=== PATIENT | male | born 1945 | race Caucasian/White ===

== ENCOUNTER 2018-03-28 07:47 | Day surgery (SDC) | payer OTHER ==
[~2018-03-28] VITALS: Ht 180.3 cm; Wt 106.0 kg
[~2018-03-28 07:47] MED LIST: ACET500 PO; ARTIFICIAL TEAR15 ML BOTHEYES; ATOR20 PO; BETA.05TCA; CVS DAILY MULT1 EAC1 PO; DILTIAZEM 24HR240 M1 PO; DULO30 PO; FISH OIL 1,0001 EACH PO; Ferrous Sulfat325 M2 PO; Geri-Hydrolac140 GM; HYDCHL12.5 PO; Xalatan2.5 ML; ZYRTEC10 M1 PO
[2018-03-28] MEDS ORDERED: WARF5 PO (08:33)
[2018-03-28] MEDS ORDERED: LOSA50 PO (08:33)
[2018-03-28] MEDS ORDERED: METO50ER PO (08:35)
== END 2018-03-28 22:39 | disposition home or self-care (01) ==
LOC: MHTC 07:47
PROC: 5A2204Z Restoration of Cardiac Rhythm, Single (ICD-10-PCS; principal; 2018-03-28)
DX: I48.0 Paroxysmal atrial fibrillation (principal); I48.92 Unspecified atrial flutter; E78.5 Hyperlipidemia, unspecified; I10 Essential (primary) hypertension; G47.33 Obstructive sleep apnea (adult) (pediatric); Z79.01 Long term (current) use of anticoagulants; Z87.891 Personal history of nicotine dependence
CPT/HCPCS: 92960; 93005; 93010; J7120

== ENCOUNTER 2018-10-23 00:33 | Emergency (ER) | payer SELFPAY ==
[~2018-10-23] VITALS: Ht 175.3 cm; Wt 104.8 kg
[~2018-10-23 00:33] MED LIST changes: +LOSA50 PO; +METO50ER PO; +WARF5 PO
[2018-10-23] MEDS ORDERED: ASCO500 PO (02:41)
[2018-10-23] MEDS ORDERED: Istalol2.5 ML BOTHEYES (02:44)
[2018-10-23] MEDS ORDERED: DOCU100 PO (02:47)
[2018-10-23] MEDS ORDERED: ELIQUIS5 MG PO (02:47)
[2018-10-23] MEDS ORDERED: ERGO400 PO (02:49)
[2018-10-23] MEDS ORDERED: PANT40 PO (02:50)
[2018-10-23] MEDS ORDERED: Flonase 0.05% N16 GM (02:51)
[2018-10-23 04:40] LABS: BASOPHILS ABSOLUTE AUTO 0.03 K/mm3 (0.00-0.23); BASOPHILS PERCENT AUTO 1 % (0-2); EOSINOPHILS ABSOLUTE AUTO 0.21 K/mm3 (0.00-0.68); EOSINOPHILS PERCENT AUTO 4 % (0-6); Hematocrit 34.7 % (37.0-53.0); Hemoglobin 11.3 g/dL (13.5-17.5); IMMATURE GRAN ABSOLUTE AUTO 0.03 K/mm3 (0.00-0.10); IMMATURE GRAN PERCENT AUTO 1 % (0-1); LYMPHOCYTES ABSOLUTE AUTO 1.71 K/mm3 (0.84-5.20); LYMPHOCYTES PERCENT AUTO 29 % (21-46); MONOCYTES ABSOLUTE AUTO 0.63 K/mm3 (0.16-1.47); MONOCYTES PERCENT AUTO 11 % (4-13); Mean Corpuscular HGB 32.3 pg (26.0-34.0); Mean Corpuscular HGB Conc 32.6 g/dL (31.5-36.5); Mean Corpuscular Volume 99 fL (80-100); Mean Platelet Volume 10.2 fL (9.1-12.4); NEUTROPHILS ABSOLUTE AUTO 3.21 K/mm3 (1.96-9.15); NEUTROPHILS PERCENT AUTO 55 % (41-73); Platelet Count 228 K/mm3 (150-400); RDW Coefficient Variation 13.2 % (11.7-14.2); RDW Standard Deviation 47.5 fL (35.1-46.3); White Blood Cell Count 5.82 K/mm3 (4.00-11.30)
[2018-10-23 05:01] LABS: Alanine Aminotransfer (ALT/SGP 37 U/L (12-78); Albumin, Blood 3.3 g/dL (3.4-5.0); Albumin/Globulin Ratio 1.1 (0.8-1.8); Alk Phos 73 U/L (50-136); Anion Gap 10 mmol/L (6-16); Aspartate Aminotrans (AST/SGOT 24 U/L (12-37); Bilirubin, Total 0.2 mg/dL (0.1-1.0); Blood Urea Nitrogen 24 mg/dL (8-24); CO2, Blood 23 mmol/L (21-32); Calcium, Blood 8.4 mg/dL (8.5-10.1); Chloride, Blood 110 mmol/L (98-108); Creatinine, Blood 1.33 mg/dL (0.60-1.20); Glomerular Filtration Rate 56 (60-); Glucose, Blood 103 mg/dL (70-99); Potassium, Blood 3.8 mmol/L (3.5-5.5); Sodium, Blood 143 mmol/L (136-145); Total Protein, Blood 6.3 g/dL (6.4-8.2); Troponin I <0.015 ng/mL (0.000-0.040)
== END 2018-10-23 05:38 | disposition home or self-care (01) ==
LOC: ER 00:33
PROVIDERS: Emergency Medicine
DX: I48.91 Unspecified atrial fibrillation (principal); Z88.0 Allergy status to penicillin; Z88.5 Allergy status to narcotic agent; Z88.1 Allergy status to other antibiotic agents; Z91.030 Bee allergy status; Z79.899 Other long term (current) drug therapy; Z87.891 Personal history of nicotine dependence
CPT/HCPCS: 80053; 84484; 85025; 93005; 93010; 99285-25

== ENCOUNTER 2019-09-12 09:08 | Day surgery (SDC) | payer OTHER ==
[~2019-09-12 09:08] MED LIST changes: +ASCO500 PO; +DOCU100 PO; +ELIQUIS5 MG PO; +ERGO400 PO; +Flonase 0.05% N16 GM; +Istalol2.5 ML BOTHEYES; +PANT40 PO
--- NOTE | 2019-09-12 10:58 | NUR ---
LATE ENTRY 0925 18 GAUGE IV INSTERTED IN [facility] BY AYAAN. PT TOLERATED WELL.
--- NOTE | 2019-09-12 11:13 | NUR ---
PT MEETS CRITERIA FOR D/C. IV D/C'D WNL. Discharge instructions reviewed with patient. Patient verbalizes understanding. Copy given to patient to take home. Discharged via wheelchair to private car for ride home.
== END 2019-09-12 23:14 | disposition home or self-care (01) ==
LOC: CT 09:08
DX: I25.10 Atherosclerotic heart disease of native coronary artery without angina pectoris (principal); I12.9 Hypertensive chronic kidney disease with stage 1 through stage 4 chronic kidney disease, or unspecified chronic kidney disease; E78.5 Hyperlipidemia, unspecified; G47.33 Obstructive sleep apnea (adult) (pediatric); N18.2 Chronic kidney disease, stage 2 (mild); Z79.899 Other long term (current) drug therapy; Z79.01 Long term (current) use of anticoagulants; Z87.891 Personal history of nicotine dependence; Z88.5 Allergy status to narcotic agent; Z88.0 Allergy status to penicillin; Z88.1 Allergy status to other antibiotic agents; Z91.030 Bee allergy status
CPT/HCPCS: 75574; Q9967

== ENCOUNTER 2019-10-03 07:45 | Day surgery (SDC) | payer OTHER ==
[~2019-10-03] VITALS: Ht 175.3 cm; Wt 109.0 kg
--- NOTE | 2019-10-03 13:48 | NUR ---
R WRIST TR BAND REMOVED. PUNCTURE AREA CLEANED WITH NS AND CLOTH DRSG APPLIED. -BLEEDING OR SWELLING. R WRIST SPLINT REAPPLIED. IV REMOVED. PT TAKEN OUT OF THE [facility] VIA W/C.
== END 2019-10-03 14:18 | disposition home or self-care (01) ==
LOC: MHTC 07:45
PROC: B201YZZ Plain Radiography of Multiple Coronary Arteries using Other Contrast (ICD-10-PCS; principal; 2019-10-03)
PROC: 4A023N7 Measurement of Cardiac Sampling and Pressure, Left Heart, Percutaneous Approach (ICD-10-PCS; principal; 2019-10-03)
DX: I25.10 Atherosclerotic heart disease of native coronary artery without angina pectoris (principal); E78.5 Hyperlipidemia, unspecified; G47.33 Obstructive sleep apnea (adult) (pediatric); I12.9 Hypertensive chronic kidney disease with stage 1 through stage 4 chronic kidney disease, or unspecified chronic kidney disease; I48.91 Unspecified atrial fibrillation; N18.2 Chronic kidney disease, stage 2 (mild); Z88.0 Allergy status to penicillin; Z88.1 Allergy status to other antibiotic agents; Z91.030 Bee allergy status; Z79.01 Long term (current) use of anticoagulants; Z79.899 Other long term (current) drug therapy; Z87.891 Personal history of nicotine dependence; Z88.5 Allergy status to narcotic agent
CPT/HCPCS: 85347; 92978; 93458; 93571; 99152; 99153; C1725; C1769; C1887; C1894; J1644; J2250; J3010; J7030; Q9967

== ENCOUNTER 2021-03-30 13:07 | Day surgery (SDC) | payer OTHER ==
[~2021-03-30] VITALS: Ht 175.3 cm; Wt 94.4 kg
[~2021-03-30 13:07] MED LIST changes: +ALBU90OI INH; +ANTIFUNGAL30 GM TOP; +ARTIFICIAL TEA1 EACH BOTHEYES; +ARTIFICIAL TEAR15 M2; -ARTIFICIAL TEAR15 ML BOTHEYES; +ASPIR PO; +Acerola C500 MG PO; +Amiodarone HCl200 MG PO; +CLOTRIMAZOLE AF1524 TOP; +COMBIVENT RESPIM4 G1 INH; -CVS DAILY MULT1 EAC1 PO; +Colace100 MG PO; +DICLOFENAC SOD100 G1 TOP; -DILTIAZEM 24HR240 M1 PO; +DILTIAZEM 24HR360 MG PO; +ELIQUIS5 M2 PO; -ERGO400 PO; +FERROUS SULFAT325 M3 PO; +FERSU300 PO; +FISH OIL 1,0001 EAC8 PO; -FISH OIL 1,0001 EACH PO; +FISH OIL 1,2001 EAC1 PO; +GEMF600 PO; +HYDCHL25 PO; +Hair, Skin & N1 EACH PO; -Istalol2.5 ML BOTHEYES; +LATA.005SO BOTHEYES; +LEVE500 PO; +LIDO700A20 TOP; +LUBRICATING TEA15 ML BOTHEYES; +METAMUCIL POWD575 GM PO; +METO25 PO; +MULTIPLE VITAM1 EACH PO; +NITR.4SL SL; +PSYLLIUM SEED PO; +REFRESH CELLUV1 EACH BOTHEYES; +STIOLTO RESPIMAT4 G1 INH; +TIAZAC PO; +TIMO.25OPS BOTHEYES; +TOPROL XL50 M1 PO; +VITAMIN D325 MC3 PO; +Vitamin D2000 UNIT PO; +XALATAN2.5 ML BOTHEYES; -Xalatan2.5 ML; +ZYRTEC10 M2 PO
--- NOTE | 2021-03-30 13:42 | NUR ---
03/30/21 1342 Zaida Machuca 1 TRY RIGHT LEFT HAND NO FLASH
== END 2021-03-30 15:53 | disposition home or self-care (01) ==
LOC: ORSCSDS 13:07
PROVIDERS: Surgery
PROC: 0DB68ZX Excision of Stomach, Via Natural or Artificial Opening Endoscopic, Diagnostic (ICD-10-PCS; principal; 2021-03-30 14:30)
PROC: 0DBH8ZX Excision of Cecum, Via Natural or Artificial Opening Endoscopic, Diagnostic (ICD-10-PCS; principal; 2021-03-30 14:30)
PROC: 0DB98ZX Excision of Duodenum, Via Natural or Artificial Opening Endoscopic, Diagnostic (ICD-10-PCS; principal; 2021-03-30 14:30)
PROC: 0DBL8ZX Excision of Transverse Colon, Via Natural or Artificial Opening Endoscopic, Diagnostic (ICD-10-PCS; principal; 2021-03-30 14:30)
PROC: 0DBP8ZX Excision of Rectum, Via Natural or Artificial Opening Endoscopic, Diagnostic (ICD-10-PCS; principal; 2021-03-30 14:30)
PROC: 0D568ZZ Destruction of Stomach, Via Natural or Artificial Opening Endoscopic (ICD-10-PCS; principal; 2021-03-30 14:30)
DX: D50.0 Iron deficiency anemia secondary to blood loss (chronic) (principal); K31.819 Angiodysplasia of stomach and duodenum without bleeding; D12.0 Benign neoplasm of cecum; D12.3 Benign neoplasm of transverse colon; K62.1 Rectal polyp; Z86.010 Personal history of colon polyps; I48.91 Unspecified atrial fibrillation; Z86.73 Personal history of transient ischemic attack (TIA), and cerebral infarction without residual deficits; I12.9 Hypertensive chronic kidney disease with stage 1 through stage 4 chronic kidney disease, or unspecified chronic kidney disease; N18.2 Chronic kidney disease, stage 2 (mild); G47.33 Obstructive sleep apnea (adult) (pediatric); R73.03 Prediabetes; E78.5 Hyperlipidemia, unspecified; Z79.01 Long term (current) use of anticoagulants; Z79.899 Other long term (current) drug therapy; Z87.891 Personal history of nicotine dependence
CPT/HCPCS: 88305; 88342; J2370; J2405; J2704; J7120

== ENCOUNTER 2021-04-20 19:15 | Emergency (ER) | payer OTHER ==
[~2021-04-20] VITALS: Ht 175.3 cm; Wt 97.1 kg
[2021-04-20 19:58] LABS: BASOPHILS ABSOLUTE AUTO 0.03 K/mm3 (0.00-0.23); BASOPHILS PERCENT AUTO 1 % (0-2); EOSINOPHILS ABSOLUTE AUTO 0.25 K/mm3 (0.00-0.68); EOSINOPHILS PERCENT AUTO 4 % (0-6); Hematocrit 27.9 % (37.0-53.0); Hemoglobin 8.7 g/dL (13.5-17.5); IMMATURE GRAN ABSOLUTE AUTO 0.02 K/mm3 (0.00-0.10); IMMATURE GRAN PERCENT AUTO 0 % (0-1); LYMPHOCYTES PERCENT AUTO 15 % (21-46); MONOCYTES PERCENT AUTO 10 % (4-13); Mean Corpuscular HGB 28.7 pg (26.0-34.0); Mean Corpuscular HGB Conc 31.2 g/dL (31.5-36.5); Mean Corpuscular Volume 92 fL (80-100); Mean Platelet Volume 10.2 fL (9.1-12.4); NEUTROPHILS ABSOLUTE AUTO 4.34 K/mm3 (1.96-9.15); NEUTROPHILS PERCENT AUTO 71 % (41-73); Platelet Count 371 K/mm3 (150-400); RDW Coefficient Variation 14.2 % (11.7-14.2); RDW Standard Deviation 48.2 fL (35.1-46.3); Red Blood Cell Count 3.03 M/mm3 (4.30-5.90); White Blood Cell Count 6.14 K/mm3 (4.00-11.30)
[2021-04-20 21:23] LABS: Alanine Aminotransfer (ALT/SGP 36 U/L (12-78); Albumin, Blood 3.7 g/dL (3.4-5.0); Albumin/Globulin Ratio 1.1 (0.8-1.8); Alk Phos 71 U/L (50-136); Anion Gap 7 mmol/L (6-16); Aspartate Aminotrans (AST/SGOT 19 U/L (12-37); Bilirubin, Total 0.2 mg/dL (0.1-1.0); Blood Urea Nitrogen 34 mg/dL (8-24); Bun/Creatinine Ratio 16.2 (12.0-20.0); CO2, Blood 25 mmol/L (21-32); Calcium, Blood 8.5 mg/dL (8.5-10.1); Chloride, Blood 109 mmol/L (98-108); Globulin, Blood 3.4 g/dL (2.2-4.0); Glomerular Filtration Rate 31 (60-); Glucose, Blood 103 mg/dL (70-99); Sodium, Blood 141 mmol/L (136-145); Total Protein, Blood 7.1 g/dL (6.4-8.2); Troponin I <0.015 ng/mL (0.000-0.040)
== END 2021-04-20 22:40 | disposition home or self-care (01) ==
LOC: ER 19:15
PROVIDERS: Emergency Medicine Emergency Medical Services
DX: R42 Dizziness and giddiness (principal); I12.9 Hypertensive chronic kidney disease with stage 1 through stage 4 chronic kidney disease, or unspecified chronic kidney disease; N18.30 Chronic kidney disease, stage 3 unspecified; D63.1 Anemia in chronic kidney disease; I48.91 Unspecified atrial fibrillation; I25.10 Atherosclerotic heart disease of native coronary artery without angina pectoris; E78.5 Hyperlipidemia, unspecified; G47.33 Obstructive sleep apnea (adult) (pediatric); Z91.038 Other insect allergy status; Z88.0 Allergy status to penicillin; Z88.1 Allergy status to other antibiotic agents; Z88.5 Allergy status to narcotic agent; Z79.899 Other long term (current) drug therapy; Z79.01 Long term (current) use of anticoagulants
CPT/HCPCS: 36415; 70450; 71045; 80053; 84484; 85025; 93005; 93010; 99285-25

== ENCOUNTER 2021-05-10 10:38 | Day surgery (SDC) | payer OTHER ==
[~2021-05-10] VITALS: Ht 175.3 cm; Wt 98.0 kg
== END 2021-05-10 12:40 | disposition home or self-care (01) ==
LOC: ORSCSDS 10:38
PROVIDERS: Surgery
PROC: 0D568ZZ Destruction of Stomach, Via Natural or Artificial Opening Endoscopic (ICD-10-PCS; principal; 2021-05-10 12:00)
DX: D50.0 Iron deficiency anemia secondary to blood loss (chronic) (principal); K31.819 Angiodysplasia of stomach and duodenum without bleeding; I10 Essential (primary) hypertension; G47.33 Obstructive sleep apnea (adult) (pediatric); E78.5 Hyperlipidemia, unspecified; I48.91 Unspecified atrial fibrillation; Z86.73 Personal history of transient ischemic attack (TIA), and cerebral infarction without residual deficits; Z87.891 Personal history of nicotine dependence; Z79.899 Other long term (current) drug therapy; Z79.01 Long term (current) use of anticoagulants
CPT/HCPCS: 82947; J2704; J7120

== ENCOUNTER 2021-05-13 06:24 | Day surgery (SDC) | payer OTHER ==
[~2021-05-13] VITALS: Ht 175.3 cm; Wt 98.0 kg
[2021-05-13] MEDS ORDERED: LOSA50 PO (08:01)
--- NOTE | 2021-05-13 09:49 | NUR ---
DR. BOUDREAUX HERE TO DISCUSS PROCEDURE.
== END 2021-05-13 12:11 | disposition home or self-care (01) ==
LOC: MHTC 06:24
PROC: 4A023N7 Measurement of Cardiac Sampling and Pressure, Left Heart, Percutaneous Approach (ICD-10-PCS; principal; 2021-05-13)
PROC: B2111ZZ Fluoroscopy of Multiple Coronary Arteries using Low Osmolar Contrast (ICD-10-PCS; principal; 2021-05-13)
DX: I25.118 Atherosclerotic heart disease of native coronary artery with other forms of angina pectoris (principal); E78.5 Hyperlipidemia, unspecified; I48.0 Paroxysmal atrial fibrillation; I12.9 Hypertensive chronic kidney disease with stage 1 through stage 4 chronic kidney disease, or unspecified chronic kidney disease; N18.2 Chronic kidney disease, stage 2 (mild); G47.33 Obstructive sleep apnea (adult) (pediatric); Z95.0 Presence of cardiac pacemaker; D50.0 Iron deficiency anemia secondary to blood loss (chronic); I73.9 Peripheral vascular disease, unspecified; Z01.810 Encounter for preprocedural cardiovascular examination; Z91.030 Bee allergy status; Z88.0 Allergy status to penicillin; Z88.5 Allergy status to narcotic agent
CPT/HCPCS: 76937; 93454; 99152; 99153; C1769; C1894; J1644; J2250; J3010; J7030; J7050; Q9967

== ENCOUNTER 2021-12-01 14:07 | Emergency (ER) | payer OTHER ==
[~2021-12-01] VITALS: Ht 175.3 cm; Wt 98.9 kg
[~2021-12-01 14:07] MED LIST changes: +ALBU8HFA2 INH; +Aspir 8181 MG PO; +FLUTICASONE-SA1 EAC1 INH
[2021-12-01 14:48] LABS: BASOPHILS ABSOLUTE AUTO 0.02 K/mm3 (0.00-0.23); BASOPHILS PERCENT AUTO 0 % (0-2); EOSINOPHILS ABSOLUTE AUTO 0.34 K/mm3 (0.00-0.68); EOSINOPHILS PERCENT AUTO 6 % (0-6); Hematocrit 27.4 % (37.0-53.0); IMMATURE GRAN ABSOLUTE AUTO 0.01 K/mm3 (0.00-0.10); IMMATURE GRAN PERCENT AUTO 0 % (0-1); LYMPHOCYTES PERCENT AUTO 11 % (21-46); MONOCYTES ABSOLUTE AUTO 0.53 K/mm3 (0.16-1.47); MONOCYTES PERCENT AUTO 10 % (4-13); Mean Corpuscular HGB Conc 29.2 g/dL (31.5-36.5); Mean Corpuscular Volume 86 fL (80-100); Mean Platelet Volume 10.1 fL (9.1-12.4); NEUTROPHILS ABSOLUTE AUTO 3.93 K/mm3 (1.96-9.15); NEUTROPHILS PERCENT AUTO 72 % (41-73); Platelet Count 376 K/mm3 (150-400); RDW Coefficient Variation 16.2 % (11.7-14.2); RDW Standard Deviation 50.1 fL (35.1-46.3); White Blood Cell Count 5.43 K/mm3 (4.00-11.30)
[2021-12-01 15:05] LABS: Albumin, Blood 3.5 g/dL (3.4-5.0); Albumin/Globulin Ratio 1.1 (0.8-1.8); Bilirubin, Total 0.2 mg/dL (0.1-1.0); Calcium, Blood 9.1 mg/dL (8.5-10.1); Creatinine, Blood 2.11 mg/dL (0.60-1.20); Globulin, Blood 3.2 g/dL (2.2-4.0); Potassium, Blood 4.3 mmol/L (3.5-5.5); Total Protein, Blood 6.7 g/dL (6.4-8.2)
== END 2021-12-01 16:17 | disposition home or self-care (01) ==
LOC: ER 14:07
PROVIDERS: Emergency Medicine
DX: D64.9 Anemia, unspecified (principal); R55 Syncope and collapse; E78.5 Hyperlipidemia, unspecified; I12.9 Hypertensive chronic kidney disease with stage 1 through stage 4 chronic kidney disease, or unspecified chronic kidney disease; N18.30 Chronic kidney disease, stage 3 unspecified
CPT/HCPCS: 36415; 70450; 80053; 84484; 85025; 93005; 93010; 99284-25

== ENCOUNTER 2022-02-10 06:07 | Day surgery (SDC) | payer OTHER ==
[~2022-02-10] VITALS: Ht 175.3 cm; Wt 99.1 kg
[~2022-02-10 06:07] MED LIST changes: +DULO60 PO; +GABA300 PO; +ROXICODONE5 MG PO; +TAMS.4ER PO
--- NOTE | 2022-02-10 07:22 | NUR ---
02/10/22 0722 Carissa Milligan History, Chart, Medications and Allergies reviewed before start of procedure.DR CASTANEDA PROVIDING ANESTHESIA SEE RECORDS
== END 2022-02-10 23:08 | disposition home or self-care (01) ==
LOC: ORSCMMR 06:07 → ORD 07:30 → ORSCMMR 07:30
PROVIDERS: Surgery
PROC: 0D568ZZ Destruction of Stomach, Via Natural or Artificial Opening Endoscopic (ICD-10-PCS; principal; 2022-02-10 07:30)
DX: K21.9 Gastro-esophageal reflux disease without esophagitis (principal); D64.9 Anemia, unspecified; K31.819 Angiodysplasia of stomach and duodenum without bleeding; I48.91 Unspecified atrial fibrillation; I25.10 Atherosclerotic heart disease of native coronary artery without angina pectoris; G47.33 Obstructive sleep apnea (adult) (pediatric); Z95.0 Presence of cardiac pacemaker; Z86.73 Personal history of transient ischemic attack (TIA), and cerebral infarction without residual deficits; R56.9 Unspecified convulsions; I12.9 Hypertensive chronic kidney disease with stage 1 through stage 4 chronic kidney disease, or unspecified chronic kidney disease; N18.9 Chronic kidney disease, unspecified; E66.9 Obesity, unspecified; Z68.32 Body mass index [BMI] 32.0-32.9, adult; Z79.01 Long term (current) use of anticoagulants; Z79.899 Other long term (current) drug therapy
CPT/HCPCS: J2704; J7120